=== PATIENT | male | born 1990 | race Caucasian/White ===

== ENCOUNTER 2020-08-10 14:05 | Outpatient (REF) | payer OTHER, SELFPAY | END 2020-08-10 14:06 | disposition home or self-care (01) | LOC: HO.LNP 14:05 | PROVIDERS: Visit Provider Hospitalist | DX: K52.1 Toxic gastroenteritis and colitis (principal); T36.95XA Adverse effect of unspecified systemic antibiotic, initial encounter; Y92.9 Unspecified place or not applicable; Z20.822 Contact with and (suspected) exposure to COVID-19 | CPT/HCPCS: U0003; U0005 ==

== ENCOUNTER 2020-08-19 14:07 | Emergency (ER) | payer OTHER, SELFPAY ==
--- NOTE | ~2020-08-19 | CT_ITS ---
EXAMINATION: CT ABDOMEN AND PELVIS WITH CONTRAST CLINICAL INFORMATION: Pain COMPARISON: None TECHNIQUE: Multidetector volumetric images were obtained from the superior aspect of the liver through the pubic symphysis following administration 85 mL of Omnipaque 350 intravenous contrast. Sagittal and coronal reformatted images were obtained on the technologist's workstation. Oral contrast: No This CT examination was performed using dose optimization techniques as appropriate, variously including the following: *Automated exposure control *Adjustment of mA and/or kV according to patient size (this includes techniques or standardized protocols for targeted exams where dose is matched to indication/reason for exam; i.e. extremities or head) *Use of iterative reconstruction technique DLP: 537 mGy-cm FINDINGS: LUNG BASES: The visualized lung bases are unremarkable. LIVER, GALLBLADDER, AND BILIARY TREE: There is triangular likely focal fatty infiltration adjacent the falciform ligament. No suspicious liver lesion. No biliary ductal dilatation. The gallbladder is unremarkable with no evidence of radiopaque gallstones, gallbladder wall thickening, or obvious pericholecystic inflammatory changes. PANCREAS: Unremarkable. SPLEEN: Unremarkable. ADRENAL GLANDS: Unremarkable. KIDNEYS AND URETERS: The kidneys are normal in size, shape, and attenuation. No hydronephrosis, hydroureter, or calculi seen. No perinephric stranding. BLADDER: Unremarkable. GASTROINTESTINAL TRACT: Stomach and small bowel are nondilated. There is a suggestion of subtle wall thickening of the right colon although it is predominantly collapsed. There is normal wall thickness of the distal transverse colon, left colon, and rectosigmoid colon. No focal inflammatory changes to suggest diverticulitis ABDOMINAL WALL: Small fat-containing umbilical hernia. LYMPH NODES: Normal. VASCULAR: Unremarkable. PELVIC VISCERA: Unremarkable. OSSEOUS STRUCTURES: Unremarkable. CT/CT abdomen pelvis w con IMPRESSION: There is a suggestion of wall thickening of the right colon, although its collapsed and the appearance could be due to underdistention. If the patient has right-sided abdominal pain, a nonspecific colitis is possible. Normal appendix. No evidence of diverticulitis.
--- NOTE | 2020-08-19 14:33 | ED.ABDPAIN ---
HPI - Abdominal Pain General Chief Complaint: Abdominal Pain Stated Complaint: abd pain Time Seen by Provider: 08/19/20 14:32 Source: patient Mode of arrival: ambulatory Limitations: no limitations History of Present Illness HPI narrative: Otherwise healthy 29-year-old male no significant past medical surgical history presenting ambulatory with complaint of periumbilical abdominal pain ongoing for past several weeks as also had for diarrhea which he had prior to a dental infection and worsened by penicillin he took for dental infection for couple of days. States he went to urgent care for this and was told to do take Imodium p.r.n. however he has not taken this much at all. States he gets diarrhea mostly with anything that he eats. Otherwise he denies any recent travel, sick contacts, recent illness. States he had recent COVID test that was negative and denies any upper respiratory symptoms or contact with anybody. MD elicited complaint: abdominal pain Pertinent past history: none Onset (ago): week(s) Pain Consistency: intermittent Location: periumbilical Severity: moderate Quality: cramping Radiation: none Exacerbating factors: eating Relieving factors: nothing Associated symptoms: diarrhea and other (Denies any fever, excessive weight loss or symptoms) Related Data Previous Rx's Medication Instructions Recorded dicyclomine 20 mg PO TID PRN #20 tab 08/19/20 levofloxacin 500 mg PO DAILY 7 Days #7 tab 08/19/20 metronidazole [Flagyl] 500 mg PO Q12H #14 tab 08/19/20 ondansetron HCl [Zofran] 4 mg PO Q8H PRN #10 tab 08/19/20 Allergies Allergy/AdvReac Type Severity Reaction Status Date / Time No Known Allergies Allergy Unverified 08/10/20 09:55 [No Known Allergies*] Review of Systems Review of Systems Constitutional: No Weight loss, No Fever, No Chills, No Night Sweats, No Fatigue, No Malaise ENT/Mouth: No Hearing loss, No Ear Pain, No Nasal Congestion, No Sinus Pain, No Hoarseness, No sore throat, No Rhinorrhea, No Swallowing Difficulty Eyes: No Eye Pain, No Swelling, No Redness, No Foreign Body, No Discharge, No Vision Changes Cardiovascular: No Chest Pain, No SOB, No Dyspnea on Exertion, No Orthopnea, No Edema, No Palpitations Respiratory: No Cough, No Sputum, No Wheezing, No Smoke Exposure, No Dyspnea Gastrointestinal: No Nausea, No Vomiting, + Diarrhea, No Constipation, + abdominal Pain, No Hematochezia, No Melena Genitourinary: No Urinary Frequency, No Hematuria, No Urinary Incontinence, No Urgency, No Flank Pain, No Urinary Flow Changes, No Hesitancy Musculoskeletal: No joint pain, No Myalgias, No Joint Swelling Skin: No Skin Lesions, No rash Neuro: No Weakness, No Numbness, No Paresthesias, No Loss of Consciousness, No Dizziness, No Headache Psych: No Social Issues Heme/Lymph: No Bruising, No Bleeding,No Lymphadenopathy Endocrine: No Polyuria, No Polydipsia, No Temperature Intolerance Yes all other systems are reviewed and are negative Physical Exam Vital Signs: Vital Signs: Last Vital Signs Temp 98.7 F 08/19/20 18:00 Pulse 64 08/19/20 18:00 Resp 16 08/19/20 18:00 BP 97/49 L 08/19/20 18:00 Pulse Ox 99 08/19/20 18:00 Body Mass Index 27.1 Reviewed Const: General: cooperative and healthy appearing; No acute distress or intoxicated appearing Nutritional Appearance: average body habitus Orientation/consciousness: patient oriented x3 HENMT: Head: Yes normal to inspection Ears: hearing grossly normal bilaterally Eyes: General: appearance normal, both eyes and all related structures Visual Laureano: normal visual laureano by confrontation Neck: Neck: Yes normal visual inspection, No positive Brudzinski's sign, No positive Kernig's sign and No tender Thyroid: Thyroid normal Chest: Chest palpation & inspection: normal inspection of the chest Resp: Effort & Inspection: normal respiratory effort Auscultation: clear to auscultation bilaterally Cardio: Jugular venous distension: no JVD Rhythm: regular rhythm Heart sounds: S1 normal heart sound present and S2 normal heart sound present GI: Inspection: Yes normal to inspection Palpation (GI): Soft to palpation, no guarding, not rigid, no hepatomegaly, no splenomegaly, no hernias and no masses Percussion: Yes normal to percussion Auscultation: normal bowel sounds : General: Yes no CVA tenderness Back/Spine/Pelvis: Back: no CVA tenderness Skin: General skin exam: no rashes or lesions noted Neuro: General: patient oriented x3 Extrem: General: Yes normal to inspection Course Course Course Narrative: Labs without leukocytosis, stool C diff and leukocyte negative, culture and H pylori pending. CT scan findings consistent with colitis tolerating p.o. intake well. Encouraged to push fluids and given the nonspecific findings on the CT will go ahead and encouraged to take Imodium p.r.n. start on Flagyl and Levaquin. Advised to contact if any other concerns and return to emergency room as well will provide GI referral. MDM - Abdominal Pain Differential Diagnosis Differential diagnosis: Likely abdominal pain, diverticulitis, gastroenteritis and gastritis; Unlikely aortic dissection, acute appendicitis, bowel perforation, calculus of kidney, constipation, mesenteric ischemia, pancreatitis, renal colic and small bowel obstruction Lab Data Attestation: I reviewed the patient's lab results. Result diagrams: 08/19/20 14:54 08/19/20 14:54 Labs: Lab Results 08/19/20 08/19/20 08/19/20 Range/Units 14:54 14:54 18:03 WBC 6.4 (4.8-10.8) X10*3/uL RBC 5.47 (4.60-5.80) X10*6/uL Hgb 15.7 (14.0-18.0) g/dl Hct 46.7 (42-52) % MCV 85.4 (80-98) fL MCH 28.7 (27.0-33.0) pg MCHC 33.6 (31.0-36.0) g/dl RDW 12.3 (11.0-16.0) % Plt Count 241 (160-400) X10*3/uL MPV 10.5 (9.4-12.4) fL Immature Gran % (Auto) 0.6 H (0.0-0.4) % Neut % (Auto) 47.0 (45-73) % Lymph % (Auto) 44.3 H (20-40) % Rogers % (Auto) 6.1 (2-11) % Eos % (Auto) 1.4 (0-4) % Baso % (Auto) 0.6 (0-2) % Lymph # (Auto) 2.8 (1.2-4.9) X10*3/uL Rogers # (Auto) 0.4 (0.1-1.2) X10*3/uL Eos # (Auto) 0.1 (0.0-0.4) X10*3/uL Baso # (Auto) 0.0 (0.0-0.2) X10*3/uL Abs Immat Gran (auto) 0.04 H (0.00-0.03) X10*3/uL Absolute Neuts (auto) 3.0 (2.0-8.3) X10*3/uL Absolute Nucleated RBC 0.000 (0.0-0.012) X10*3/uL Nucleated RBC % (auto) 0.0 (0.0-0.2) /100WBC Sodium 139 (135-145) mmol/L Potassium 4.2 (3.3-5.1) mmol/L Chloride 102 (96-108) mmol/L Carbon Dioxide 28 (22-29) mmol/L Anion Gap 13 (12-20) BUN 9 (9-16) mg/dL Creatinine 1.00 (0.5-1.4) mg/dL Estim Creat Clear Calc 118.5 Estimated GFR > 60 Random Glucose 91 (60-115) mg/dL Calcium 9.7 (8.4-10.2) mg/dL Total Bilirubin 0.9 (0.0-1.0) mg/dL AST 26 (5-37) U/L ALT 25 (0-40) U/L Alkaline Phosphatase 84 (39-117) U/L Total Protein 7.7 (6.5-8.0) g/dL Albumin 4.7 (3.5-5.0) g/dL Stool Collect Date Stool Occult Blood Stool 2 Collect Date Stool Occult Blood #2 Stool 3 Collect Date Stool Occult Blood #3 Stool Leukocytes, Qual NEGATIVE (NEGATIVE) C. difficile Toxin A&B (Negative) C. difficile Antigen (Negative) C. difficile Interpret 08/19/20 08/19/20 08/19/20 Range/Units 18:03 18:03 18:55 WBC (4.8-10.8) X10*3/uL RBC (4.60-5.80) X10*6/uL Hgb (14.0-18.0) g/dl Hct (42-52) % MCV (80-98) fL MCH (27.0-33.0) pg MCHC (31.0-36.0) g/dl RDW (11.0-16.0) % Plt Count (160-400) X10*3/uL MPV (9.4-12.4) fL Immature Gran % (Auto) (0.0-0.4) % Neut % (Auto) (45-73) % Lymph % (Auto) (20-40) % Rogers % (Auto) (2-11) % Eos % (Auto) (0-4) % Baso % (Auto) (0-2) % Lymph # (Auto) (1.2-4.9) X10*3/uL Rogers # (Auto) (0.1-1.2) X10*3/uL Eos # (Auto) (0.0-0.4) X10*3/uL Baso # (Auto) (0.0-0.2) X10*3/uL Abs Immat Gran (auto) (0.00-0.03) X10*3/uL Absolute Neuts (auto) (2.0-8.3) X10*3/uL Absolute Nucleated RBC (0.0-0.012) X10*3/uL Nucleated RBC % (auto) (0.0-0.2) /100WBC Sodium (135-145) mmol/L Potassium (3.3-5.1) mmol/L Chloride (96-108) mmol/L Carbon Dioxide (22-29) mmol/L Anion Gap (12-20) BUN (9-16) mg/dL Creatinine (0.5-1.4) mg/dL Estim Creat Clear Calc Estimated GFR Random Glucose (60-115) mg/dL Calcium (8.4-10.2) mg/dL Total Bilirubin (0.0-1.0) mg/dL AST (5-37) U/L ALT (0-40) U/L Alkaline Phosphatase (39-117) U/L Total Protein (6.5-8.0) g/dL Albumin (3.5-5.0) g/dL Stool Collect Date Cancelled Stool Occult Blood Cancelled NEG Stool 2 Collect Date Cancelled Stool Occult Blood #2 Cancelled Stool 3 Collect Date Cancelled Stool Occult Blood #3 Cancelled Stool Leukocytes, Qual (NEGATIVE) C. difficile Toxin A&B Negative (Negative) C. difficile Antigen Negative (Negative) C. difficile Interpret SEE NOTE Imaging Data Abdominal/pelvis CT with IV contrast: Radiologist's impression: [id number] [place], [place] [id number] Scan ReportSigned Patient: Mitch Saunders BilalMR#: [id number]: 1990Acct:[id number]/Sex: 29 / MADM Date: 08/19/20Loc: [address]: Ordering Physician: Hank Bray NP Date of Service: 08/19/20 Procedure(s): CT abdomen pelvis w con Accession Number(s): [id number] cc: Hank Bray NP~ EXAMINATION: CT ABDOMEN AND PELVIS WITH CONTRAST CLINICAL INFORMATION: Pain COMPARISON: None TECHNIQUE: Multidetector volumetric images were obtained from the superior aspect of the liver through the pubic symphysis following administration 85 mL of Omnipaque 350 intravenous contrast. Sagittal and coronal reformatted images were obtained on the technologist's workstation. Oral contrast: No This CT examination was performed using dose optimization techniques as appropriate, variously including the following: *Automated exposure control *Adjustment of mA and/or kV according to patient size (this includes techniques or standardized protocols for targeted exams where dose is matched to indication/reason for exam; i.e. extremities or head) *Use of iterative reconstruction technique DLP: 537 mGy-cm FINDINGS: LUNG BASES: The visualized lung bases are unremarkable. LIVER, GALLBLADDER, AND BILIARY TREE: There is triangular likely focal fatty infiltration adjacent the falciform ligament. No suspicious liver lesion. No biliary ductal dilatation. The gallbladder is unremarkable with no evidence of radiopaque gallstones, gallbladder wall thickening, or obvious pericholecystic inflammatory changes. PANCREAS: Unremarkable. SPLEEN: Unremarkable. ADRENAL GLANDS: Unremarkable. KIDNEYS AND URETERS: The kidneys are normal in size, shape, and attenuation. No hydronephrosis, hydroureter, or calculi seen. No perinephric stranding. BLADDER: Unremarkable. GASTROINTESTINAL TRACT: Stomach and small bowel are nondilated. There is a suggestion of subtle wall thickening of the right colon although it is predominantly collapsed. There is normal wall thickness of the distal transverse colon, left colon, and rectosigmoid colon. No focal inflammatory changes to suggest diverticulitis ABDOMINAL WALL: Small fat-containing umbilical hernia. LYMPH NODES: Normal. VASCULAR: Unremarkable. PELVIC VISCERA: Unremarkable. OSSEOUS STRUCTURES: Unremarkable. CT/CT abdomen pelvis w con IMPRESSION: There is a suggestion of wall thickening of the right colon, although its collapsed and the appearance could be due to underdistention. If the patient has right-sided abdominal pain, a nonspecific colitis is possible. Normal appendix. No evidence of diverticulitis. Dictated By:TAIWO SABILLON MDSigned By:<Electronically signed by TAIWO SABILLON MD in OV>08/19/20 1634 DD/ 1437TD/TT: Floral Arranger: TF Discharge Plan Discharge Clinical Impression: Colitis Diarrhea Qualifiers: Diarrhea type: unspecified type Qualified Code(s): R19.7 - Diarrhea, unspecified Patient Disposition: Home, Self-Care Instructions: Colitis (ED) Additional Instructions: Your blood work was overall stable did not show any signs of dehydration or infection The CT scan of the abdomen pelvis showed right colon thickening that is consistent with colitis (inflammation/irritation) At this time your stool samples are pending; we will call you with results Otherwise your CT scan did not show any evidence of abscess or appendix problems or diverticulitis. Push fluids Avoid caffeine, caffeinated drinks, chocolate Take medication prescribed If we need to change your regimen of her medications will call you with with this Additionally I would like for you to follow-up with gastroenterology Thank you Prescriptions: New dicyclomine 20 mg tablet 20 mg PO TID PRN (Reason: Abdominal cramping) Qty: 20 RF: 0 metronidazole [Flagyl] 500 mg tablet 500 mg PO Q12H Qty: 14 RF: 0 ondansetron HCl [Zofran] 4 mg tablet 4 mg PO Q8H PRN (Reason: nausea and vomiting) Qty: 10 RF: 0 levofloxacin 500 mg tablet 500 mg PO DAILY 7 Days Qty: 7 RF: 0 Referrals: Leopoldo Garcia MD [Physician] - 1 week Interventions: ED Discharge Assessment Last Done: 08/19/20 18:41 Discharge Date/Time: 08/19/20 18:42 [facility] Social History Social History Advance Directives: No Advance Directives Information Provided: Yes
[2020-08-19 14:43] VITALS: BP 138/86; PULSE 81; RESP 20; TEMP 36.8; O2SAT 99; BMI 27.1
[2020-08-19] MEDS: 0.9 % Sodium Chloride 1,000 ML 999 ML IV (14:55)
[2020-08-19] MEDS: Dicyclomine HCl 10 MG CAPSULE 20 MG PO (14:56)
[2020-08-19 15:02] LABS: MANUAL DIFF FLAG NO
[2020-08-19 15:04] LABS: Basophils Percent Auto 0.6 % (0-2); Eosinophils Absolute Auto 0.1 X10*3/uL (0.0-0.4); Eosinophils Percent Auto 1.4 % (0-4); Hematocrit 46.7 % (42-52); Hemoglobin 15.7 g/dl (14.0-18.0); Imm Gran Abs Auto 0.04 X10*3/uL (0.00-0.03); Imm Gran Pct Auto 0.6 % (0.0-0.4); Lymphocytes Absolute Auto 2.8 X10*3/uL (1.2-4.9); Lymphocytes Percent Auto 44.3 % (20-40); Mean Corpuscular HGB Conc 33.6 g/dl (31.0-36.0); Mean Corpuscular Hemoglobin 28.7 pg (27.0-33.0); Mean Corpuscular Volume 85.4 fL (80-98); Mean Platelet Volume 10.5 fL (9.4-12.4); Monocytes Absolute Auto 0.4 X10*3/uL (0.1-1.2); Monocytes Percent Auto 6.1 % (2-11); Platelet Count 241 X10*3/uL (160-400); Red Blood Count 5.47 X10*6/uL (4.60-5.80); Red Cell Distribution Width 12.3 % (11.0-16.0); White Blood Count 6.4 X10*3/uL (4.8-10.8)
[2020-08-19 15:32] LABS: Alanine Aminotransferase 25 U/L (0-40); Albumin Level 4.7 g/dL (3.5-5.0); Alkaline Phosphatase 84 U/L (39-117); Anion Gap 13 (12-20); Aspartate Amino Transferase 26 U/L (5-37); Bilirubin Total 0.9 mg/dL (0.0-1.0); Blood Urea Nitrogen 9 mg/dL (9-16); Calcium 9.7 mg/dL (8.4-10.2); Carbon Dioxide 28 mmol/L (22-29); Chloride 102 mmol/L (96-108); Creatinine Clr Calc Pharmacy 118.5; Estimated Glomerular Filt Rate > 60; Glucose Random 91 mg/dL (60-115); Potassium 4.2 mmol/L (3.3-5.1); Sodium 139 mmol/L (135-145); Total Protein 7.7 g/dL (6.5-8.0)
[2020-08-19 16:00] VITALS: BP 101/59; PULSE 64; RESP 15; TEMP 36.8; O2SAT 99
[2020-08-19 18:00] VITALS: BP 97/49; PULSE 64; RESP 16; TEMP 37.1; O2SAT 99
[2020-08-19 19:01] LABS: OBS Int Ctl Valid YES; OBS1 NEG (NEG)
[2020-08-19 19:28] LABS: CDIFF Ag Negative (Negative); CDIFF Internal ctrl Dots and bkg OK (V); CDiff Toxin Negative (Negative)
[2020-08-19 19:35] LABS: Leukocytes Stool Qualitative NEGATIVE (NEGATIVE)
== END 2020-08-19 18:42 | disposition home or self-care (01) ==
PROVIDERS: Nurse Practitioner Primary Care; Emergency Provider Internal Medicine; PCP Nurse Practitioner Family
DX: K52.9 Noninfective gastroenteritis and colitis, unspecified (principal); R10.33 Periumbilical pain
CPT/HCPCS: 36415; 74177; 80053; 82272; 85025; 87045; 87046; 87324; 87338; 87449; 89055; 96360; 99283; 99284; Q9967

== ENCOUNTER → 2020-10-03 14:19 | Outpatient (BNVA) | payer OTHER, SELFPAY | PROVIDERS: Visit Provider Internal Medicine Gastroenterology ==

== ENCOUNTER 2021-02-23 08:33 | Outpatient (REF) | payer OTHER, SELFPAY ==
[2021-02-23 09:09] LABS: MANUAL DIFF FLAG NO
[2021-02-23 09:44] LABS: Alanine Aminotransferase 26 U/L (0-40); Albumin Level 4.3 g/dL (3.5-5.0); Alkaline Phosphatase 79 U/L (39-117); Anion Gap 11 (12-20); Aspartate Amino Transferase 20 U/L (5-37); Basophils Percent Auto 0.6 % (0-2); Bilirubin Total 0.7 mg/dL (0.0-1.0); Blood Urea Nitrogen 11 mg/dL (9-16); C Reactive Protein 0.11 mg/dL (< or = 0.50); Calcium 9.8 mg/dL (8.4-10.2); Carbon Dioxide 29 mmol/L (22-29); Chloride 103 mmol/L (96-108); Eosinophils Absolute Auto 0.1 X10*3/uL (0.0-0.4); Eosinophils Percent Auto 2.3 % (0-4); Estimated Glomerular Filt Rate > 60; Glucose Random 110 mg/dL (60-115); Hematocrit 45.5 % (42-52); Imm Gran Abs Auto 0.03 X10*3/uL (0.00-0.03); Imm Gran Pct Auto 0.6 % (0.0-0.4); Lymphocytes Absolute Auto 2.5 X10*3/uL (1.2-4.9); Lymphocytes Percent Auto 47.4 % (20-40); Mean Corpuscular Hemoglobin 28.4 pg (27.0-33.0); Mean Platelet Volume 10.6 fL (9.4-12.4); Monocytes Absolute Auto 0.4 X10*3/uL (0.1-1.2); Neutrophils Absolute Auto 2.3 X10*3/uL (2.0-8.3); Neutrophils Percent Auto 42.1 % (45-73); Platelet Count 215 X10*3/uL (160-400); Potassium 4.3 mmol/L (3.3-5.1); Red Blood Count 5.29 X10*6/uL (4.60-5.80); Red Cell Distribution Width 12.4 % (11.0-16.0); Sodium 139 mmol/L (135-145); Total Protein 7.1 g/dL (6.5-8.0); White Blood Count 5.3 X10*3/uL (4.8-10.8)
[2021-02-23 10:09] LABS: Erythrocyte Sedimentation Rate 2 MM/HR (0-15)
== END 2021-02-23 08:34 | disposition home or self-care (01) ==
LOC: HO.LAB 08:33
PROVIDERS: Visit Provider Internal Medicine Gastroenterology
DX: K52.9 Noninfective gastroenteritis and colitis, unspecified (principal); K75.81 Nonalcoholic steatohepatitis (NASH)
CPT/HCPCS: 36415; 80053; 85025; 85652; 86140

== ENCOUNTER 2021-03-17 11:28 | Outpatient (REF) | payer OTHER, SELFPAY ==
[2021-03-23 02:26] LABS: Calprotectin, Fecal 19 mcg/g
== END 2021-03-17 11:29 | disposition home or self-care (01) ==
LOC: HO.LNP 11:28
PROVIDERS: Referring Provider Internal Medicine Gastroenterology; Visit Provider Internal Medicine Gastroenterology
DX: K52.9 Noninfective gastroenteritis and colitis, unspecified (principal)
CPT/HCPCS: 83993

== ENCOUNTER → 2021-05-01 13:53 | Outpatient (BNVA) | payer OTHER, SELFPAY | PROVIDERS: PCP Nurse Practitioner Family; Visit Provider Internal Medicine Gastroenterology ==

== ENCOUNTER 2021-05-16 09:27 | Outpatient (REF) | payer OTHER, SELFPAY ==
--- NOTE | ~2021-05-16 | CT_ITS ---
EXAMINATION: CT ENTEROGRAPHY ABDOMEN AND PELVIS WITH CONTRAST CLINICAL INFORMATION: Periumbilical pain. Colitis. COMPARISON: Review of CT of the abdomen and pelvis August 2020 TECHNIQUE: Study performed with oral VoLumen (1350 mL) and 480 mL of water to distend the abdomen. The patient was injected with 85 mL Omnipaque 350 intravenous contrast which was administered without adverse effect. Coronal and sagittal reformatted images were obtained at the technologist's workstation. This CT examination was performed using dose optimization techniques as appropriate, variously including the following: *Automated exposure control *Adjustment of mA and/or kV according to patient size (this includes techniques or standardized protocols for targeted exams where dose is matched to indication/reason for exam; i.e. extremities or head) *Use of iterative reconstruction technique DLP: 560 mGy-cm FINDINGS: GASTROINTESTINAL FINDINGS: Stomach: Well-distended and normal in appearance. Small intestine: Satisfactorily distended and normal in appearance. Large intestine: Well-distended and normal in appearance. No perirectal changes demonstrated. The appendix is normal. Additional findings: No abnormal enhancement of the vasa recta or significant mesenteric or retroperitoneal lymphadenopathy is seen. No abdominal abscess or fistulous tract demonstrated. ABDOMINAL AND PELVIC CT FINDINGS: Liver, gallbladder, biliary tract: Normal Pancreas: Normal Spleen: Normal Adrenal glands and kidneys: Normal Ureters and bladder: Normal Lymphovascular structures: Normal Bones: There is degenerative disc disease at L5-S1 Lung bases: Normal There is a small umbilical hernia containing fat. CT/CT enterography IMPRESSION: No evidence of colitis. Small umbilical hernia containing fat.
[2021-05-16] MEDS: iohexoL 350 MG/ML 100 ML INFUS..BTL IV (10:55)
[2021-05-16] MEDS: Sorbitol/Mannit/Xanth Imaging 500 ML LIQUID 1500 ML PO (10:55)
== END 2021-05-16 09:28 | disposition home or self-care (01) ==
LOC: HO.CT 09:27
PROVIDERS: Visit Provider Internal Medicine Gastroenterology
DX: R10.33 Periumbilical pain (principal)
CPT/HCPCS: 74177; Q9967

== ENCOUNTER 2022-01-08 06:56 | Day surgery (SDC) | payer OTHER, SELFPAY ==
--- NOTE | 2021-12-14 10:43 | HO.ANESPROP2 ---
HPI - Anesthesia Eval Consult details Narrative: 31yo M for Colonoscopy PMFSH Active Problems Active Problems: All Active Problems (Updated 10/03/20 @ 15:06 by Leopoldo Garcia MD) Colitis (Acute) Antibiotic-associated diarrhea (Acute) Family History Family History Family/Other Diabetes Heart attack Meds Allergies Allergy/AdvReac Type Severity Reaction Status Date / Time No Known Allergies Allergy Verified 10/03/20 14:20 [No Known Allergies*] Home Medications Medication Instructions Recorded Confirmed Last Taken Type dicyclomine 20 mg tablet 20 mg PO TID PRN cramps 01/30/21 Unknown History levofloxacin 500 mg tablet 500 mg PO DAILY 01/30/21 Unknown History metronidazole 500 mg tablet 500 mg PO Q12H 01/30/21 Unknown History ondansetron HCl 4 mg tablet 4 mg PO Q8H PRN 01/30/21 Unknown History Exam Exam Date and Time: December 14, 2021 1043 Assessment and Plan Assessment Anesthesia Assessment: Chart Reviewed
--- NOTE | 2022-01-07 09:26 | HO.ANESPROP2 ---
Documented by User: Ericka Slade NP 01/07/22 09:26 HPI - Anesthesia Eval Consult details Narrative: 31yo M for Colonoscopy [facility] Active Problems Active Problems: All Active Problems (Updated 01/02/22 @ 14:22 by Michelle Thomas RN) Antibiotic-associated diarrhea (Acute) Colitis (Acute) Past Medical History Medical History Colitis History of COVID-19 Family History Family History Family/Other Diabetes Heart attack Social History Social History Patient Tobacco Use Status: Never used Tobacco Are you DNR?: No Advance Directives: No Advance Directives Information Provided: Yes Nutrition Risks: No Nutritional Risk Meds Allergies Allergy/AdvReac Type Severity Reaction Status Date / Time No Known Allergies Allergy Verified 01/08/22 07:14 [No Known Allergies*] Home Medications Medication Instructions Recorded Confirmed Last Taken Type dicyclomine 20 mg tablet 20 mg PO TID PRN cramps 01/30/21 Unknown History levofloxacin 500 mg tablet 500 mg PO DAILY 01/30/21 Unknown History metronidazole 500 mg tablet 500 mg PO Q12H 01/30/21 Unknown History ondansetron HCl 4 mg tablet 4 mg PO Q8H PRN 01/30/21 Unknown History Exam Exam Date and Time: January 07, 2022 0926 Height,Weight and Vital Signs: Height 6 ft Assessment and Plan Assessment Anesthesia Assessment: Chart Reviewed Documented by User: Yves Yeager MD 01/08/22 08:45 [facility] Past Medical History Medical History Colitis History of COVID-19 Family History Family History Family/Other Diabetes Heart attack Family history of problems with anesthesia: No Surgical History History of Problems with Anesthesia: No Social History Social History Patient Tobacco Use Status: Never used Tobacco Are you DNR?: No Advance Directives: No Advance Directives Information Provided: Yes Nutrition Risks: No Nutritional Risk Meds Allergies Allergy/AdvReac Type Severity Reaction Status Date / Time No Known Allergies Allergy Verified 01/08/22 07:14 [No Known Allergies*] Home Medications Medication Instructions Recorded Confirmed Last Taken Type dicyclomine 20 mg tablet 20 mg PO TID PRN cramps 01/30/21 Unknown History levofloxacin 500 mg tablet 500 mg PO DAILY 01/30/21 Unknown History metronidazole 500 mg tablet 500 mg PO Q12H 01/30/21 Unknown History ondansetron HCl 4 mg tablet 4 mg PO Q8H PRN 01/30/21 Unknown History Exam Airway Mallampati Class: I TM Dist: >3cm Neck ROM: Full Loose/Missing/Broken Teeth: No Heart: rrr Lungs: clear Assessment and Plan Final Anesthetic Review Family History of Problems with Anesthesia: No History of Problems with Anesthesia: No ASA Class: I Final Preanesthetic Review: No Changes in Pt Med Stat, Meds/Allgs Chart Reviewed and Anes Risks/Benef Reviewed Patient Risk: Low (U) Procedure Risk: Low Anesthetic Plan Anesthetic Plan: MAC: Disposition: Standard PACU
[2022-01-08] MEDS: Lactated Ringers 1,000 ML 100 ML IVCONT (07:19)
[2022-01-08 07:30] VITALS: BMI 27.9
[2022-01-08 07:31] VITALS: BP 129/77; PULSE 79; RESP 18; TEMP 36.7; O2SAT 98
--- NOTE | 2022-01-08 08:02 | MHC.SHP ---
Pre-Procedural Eval Section A Date of Service: 01/08/22 Section B Chief Complaint: Noninfective gastroenteritis and colitis, Relevant Family History (Specify if Yes): No Relevant Social History: None Present Medications: see Short Stay Collaborative assessment Medical History: Significant History (Colitis History of COVID-19) History of Previous Operations: No relevant previous surgery Allergies: Allergies Allergy/AdvReac Type Severity Reaction Status Date / Time No Known Allergies Allergy Verified 01/08/22 07:14 [No Known Allergies*] Review of Systems Sugical H&P ROS: Negative: Constitution, Cardiovascular, Respiratory, Neurological, Psychiatric, Hem-Onc, Allergic/Immunologic, Gastrointestinal, Genitourinary, Musculoskeletal, Integumentary, Endocrine and Eyes/Ears/Nose/Throat Exam Surgical H&P Exam: Normal: HEENT, Normal: Heart, Normal: Lungs, Normal: Extremities, Normal: Abdomen, Normal: Skin and Normal: Neurological Plan Diagnosis/Plan: Unchanged I have reviewed the history and physical and performed a pertinent physical examination on my patient. No changes have occurred unless specified.
--- NOTE | 2022-01-08 08:37 | P.OP_ITS ---
Operative Note Operative Note Date of Service: 01/08/22 Narrative: Operative Information Procedure Description: Colonoscopy Indication: episodic diarrhea, colitis Anesthesia: MAC COLONOSCOPY Instrument: Olympus variable stiffness pediatric scope 190L Colonoscopy Monitoring: Vital signs and clinical assessment, continuous EKG monitoring, Pulse oximetry, Carbon Dioxide monitoring and blood pressure monitoring were done throughout the procedure. Colon withdrawal time was 8 minutes. Procedure: The patient was placed in the left lateral decubitis position and pre-procedure medications were administered. After a digital rectal examination of the ano-rectum, the video colonoscope was inserted into the rectum and advanced through the colon to the cecum/TI. The colonoscope was slowly withdrawn in a retrograde panoramic fashion and the colon mucosa was carefully examined including a retroflexed view of the rectum. Findings and interventions are described below. Procedure Difficulty: easy Findings: Terminal Ileum-normal, bx taken Cecum: 10 mm sessile polyp removed with cold snare Ascending Colon: normal, random bx taken Transverse Colon -normal Descending Colon:normal Sigmoid Colon: normal random left sided bx taken Rectum: Retroflexion with small internal hemorrhoids, grade I Anorectum - normal Colon preparation: [place] Bowel Preparation Scale Right colon; 3 Transverse colon: 3 Left colon; 3 (0 = Unprepared colon segment with mucosa not seen due to solid stool that cannot be cleared. 1 = Portion of mucosa of the colon segment seen, but other areas of the colon segment not well seen due to staining, residual stool and/or opaque liquid. 2 = Minor amount of residual staining, small fragments of stool and/or opaque liquid, but mucosa of colon segment seen well. 3 = Entire mucosa of colon segment seen well with no residual staining, small fr agments of stool or opaque liquid) Impression and Post Procedure Diagnosis: polyp internal hemorrhoids Plan: High fiber diet leaflet Avoid straining at stool, epsom salts and sitz bath, anusol supps or cream Repeat Colonoscopy in 5-7 years due to adenomatous appearing polyp or earlier if clinically indicated Above findings were reviewed with the patient and relevant handouts were provided if indicated.
[2022-01-08 09:14] VITALS: BP 102/74; PULSE 87; RESP 16; TEMP 36.6; O2SAT 98
[2022-01-08 09:29] VITALS: BP 115/72; PULSE 76; RESP 16; TEMP 36.6; O2SAT 98
== END 2022-01-08 10:11 | disposition home or self-care (01) ==
PROVIDERS: PCP Internal Medicine; Visit Provider Internal Medicine Gastroenterology
PROC: 0DJD8ZZ Inspection of Lower Intestinal Tract, Via Natural or Artificial Opening Endoscopic (ICD-10-PCS; CPT 45378; principal; 2022-01-08 08:20)
DX: K52.9 Noninfective gastroenteritis and colitis, unspecified (principal); K63.5 Polyp of colon; K64.0 First degree hemorrhoids; Z86.16 Personal history of COVID-19
CPT/HCPCS: 45385; 45380; 88305

== ENCOUNTER 2022-09-21 01:13 | Emergency (ER) | payer MEDICAID, SELFPAY ==
--- NOTE | ~2022-09-21 | CT_ITS ---
EXAMINATION: CT CERVICAL SPINE WITHOUT CONTRAST CLINICAL INFORMATION: Mid cervical pain after soccer game. COMPARISON: None. TECHNIQUE: Contiguous helical images of the cervical spine were obtained without IV contrast. Multiplanar reconstructions were performed. This CT examination was performed using dose optimization techniques as appropriate, variously including the following: *Automated exposure control *Adjustment of mA and/or kV according to patient size (this includes techniques or standardized protocols for targeted exams where dose is matched to indication/reason for exam; i.e. extremities or head) *Use of iterative reconstruction technique DLP: 461 mGy-cm FINDINGS: There is anatomic alignment of the vertebral bodies and posterior elements. The atlantoaxial and atlantooccipital articulations are intact. Vertebral body heights and intervertebral disc spaces are maintained. No evidence of acute fracture. No prevertebral soft tissue swelling. There is no cervical lymphadenopathy. The visualized thyroid gland is unremarkable. The visualized base of the brain is unremarkable. The visualized lung apices are clear. CT/CT cervical spine wo IV con IMPRESSION: No evidence for acute injury to the cervical spine.
--- NOTE | ~2022-09-21 | XR_ITS ---
EXAMINATION: XR SHOULDER, RIGHT CLINICAL INFORMATION: Pain after soccer COMPARISON: None available. TECHNIQUE: Three views of the right shoulder. FINDINGS: No fracture or dislocation. The glenohumeral joint is well aligned. The acromioclavicular joint is intact. The visualized lung is clear. The visualized ribs are intact. Minimal calcification in the soft tissues adjacent to the right humeral greater tuberosity. XR/XR shoulder RT min 2V IMPRESSION: 1. No fracture or malalignment. 2. Minimal calcification adjacent to the right humeral greater tuberosity may represent calcific tendinosis of the rotator cuff.
[2022-09-21 01:39] VITALS: BP 101/69; PULSE 66; RESP 16; TEMP 36.7; O2SAT 97; BMI 28.5
--- NOTE | 2022-09-21 02:22 | PC.NURSE ---
Notified Charge nurse Leena pt notified this RN pain is getting worse. Will continue to monitor.
--- OUTSIDE RECORDS SUMMARY | 2022-09-21 02:31 | XMS_ITS | Continuity of Care Document ---
Author Name Unknown Organization [facility] ter Address [address] [place] [address]- Care Team Providers Care Nuclear Security Officer Name Role Phone Pramod STEIN, Luigi Santoro Primary Care Physician Encounter [facility] [place] [place] Date(s): 04/09/22 - 04/09/[address] [address]- Discharge Disposition: A-D/C Home Attending Physician: Kai Fang MD Admitting Physician: Kai Fang MD Referring Physician: Kai Fang MD Allergies, Adverse Reactions, Alerts No Known Allergies Immunizations Given and Recorded Vaccine Date Status Refusal Reason SARS-CoV-2 (COVID-19) mRNA BNT-162b2 vac 04/06/21 Recorded SARS-CoV-2 (COVID-19) mRNA BNT-162b2 vac 10/02/20 Recorded SARS-CoV-2 (COVID-19) mRNA BNT-162b2 vac 09/11/20 Recorded influenza virus vaccine, inactivated 04/05/20 Lucien rded Meningococcal Conjugate Vaccine 08/05/18 Recorded Hepatitis A Adult Vaccine 08/05/18 Recorded Medications diazepam 5 mg oral tablet 5 mg, 1, tablet, By Mouth, 3 times a day, # 40 tablet, Refills 0, Tot. Refills 0, Maintenance, 04/09/22 9:41:00 EDT, Route to Pharmacy Electronically, [facility]/pharmacy #[id number], Partial fill upon patient request if the prescription is for a schedule II opioi... Start Date: 04/09/22 Status: Ordered docusate sodium 100 mg oral capsule 100 mg, 1, capsule, By Mouth, 2 times a day, # 60 capsule, Refills 0, Tot. Refills 0, Maintenance, 04/09/22 14:07:00 EDT, Route to Pharmacy Electronically, [facility]/pharmacy #[id number], Partial fill upon patient request if the prescription is for a schedule II... Start Date: 04/09/22 Status: Ordered Flonase 50 mcg/inh nasal spray 2 sprays, Nares, Both, Daily in AM, # 16 Gm, 0 Refills, Maintenance, 03/19/22 14:57:00 EDT, [place], [id number], Partial fill upon patient request if the prescription is for a schedule II opioid drug., 2 sprays Nares, Both Daily in AM, 183, cm,... Start Date: 03/19/22 Status: Ordered ipratropium nasal 21 mcg/inh spray 1 sprays, Nares, Both, 3 times a day, PRN nasal and sinus congestion, for 14 days, # 1 each, 5 Refills, Acute 06/14/22 14:57:00 EST, 03/22/22 14:57:00 EDT, [id number], Partial fill upon patient request if the prescription is for a schedule II... Start Date: 03/22/22 Stop Date: 06/14/22 Status: Ordered levocetirizine 5 mg oral tablet 1 tablet = 5 mg, By Mouth, Daily in PM, PRN head congestion, # 14 tablet, 0 Refills, Maintenance, 03/22/22 14:58:00 EDT, Tablet, [facility]/pharmacy #[id number], Partial fill upon patient request if the prescription is for a schedule II opioid drug., 1 tablet By M... Start Date: 03/22/22 Stop Date: 04/05/22 Status: Ordered oxyCODONE 5 mg oral capsule 1 capsule = 5 mg, By Mouth, Every 6 hours, PRN as needed for pain, # 28 capsule, 0 Refills, Maintenance, 04/09/22 9:41:00 EDT, Capsule, [id number], Partial fill upon patient request if the prescription is for a schedule II opioid drug., 183, c... Start Date: 04/09/22 Status: Ordered Oxycodone 5mg/Acetaminophen 325mg Tablet 2 tablet, Tablet, By Mouth, Every 4 hours, PRN for Pain , Moderate, Routine, 04/09/22 10:08:00 EDT Start Date: 04/09/22 Stop Date: 04/09/22 Status: Discontinued Problem List Condition Confirmation Course Effective Dates Status Health St atus Informant DDD (degenerative disc disease), lumbar (L5-S1) Confirmed 05/16/21 Active Perianal cyst Confirmed Active Exertional shortness of breath Confirmed Active Internal hemorrhoids Confirmed Active Cecal polyp, 1 cm Confirmed Active Umbilical hernia without obstruction and without gangrene (small, fat containing on CT enterography) Confirmed 05/16/21 Active Vital Signs Most recent to oldest [Reference Range]: 1 2 3 Weight 96.4 kg (04/09/22 8:00 AM) Oxygen Saturation [94-100 %] 100 % (04/09/22 11:00 AM) 96 % (04/09/22 10:00 AM) 95 % (04/09/22 8:00 AM) Pulse Rate [55-90 bpm] 75 bpm (04/09/22 8:00 AM) Blood Pressure [90-138/55-84 mm Hg] 121/82mm Hg (04/09/22 11:00 AM) 104/63mm Hg (04/09/22 10:00 AM) 105/69mm Hg (04/09/22 8:00 AM) Respiratory Rate [16-30 br/min] 16 br/min (04/09/22 11:05 AM) 14 br/min *L* (04/09/22 11:00 AM) 15 br/min *L* (04/09/22 10:00 AM) Temperature [96.8-100.4 DegF] 97.8 DegF (04/09/22 10:00 AM) 97.6 DegF (04/09/22 8:00 AM) Mode of Delivery (Oxygen) Room air (04/09/22 11:30 AM) Room air (04/09/22 10:00 AM) Room air (04/09/22 8:00 AM) Blood pressure sites Arm, right (04/09/22 10:00 AM) Arm, left (04/09/22 8:00 AM) Temperature Route Temporal (04/09/22 10:00 AM) Temporal (04/09/22 8:00 AM) Dry Weight 96.4 kg (04/09/22 8:00 AM) Weight Obtained Via Standing scale (04/09/22 8:00 AM) Dry Weight Obtained Via Standing scale (04/09/22 8:00 AM) Social History Social History Type Response Smoking Status Never (less than 100 in lifetime) entered on: 09/14/21 Sex Patient Care team information Personnel Name: Pramod STEIN, Luigi W Address: Address: [address] [place] [address] [place], [place] [address]
--- OUTSIDE RECORDS SUMMARY | 2022-09-21 02:31 | XMS_ITS | Continuity of Care Document ---
Author Name Unknown Organization [facility] Address [address] [place] [address] [address] [place] [address]- Care Team Providers Care Litigation Examiner Name Role Phone Luigi Benavidez MD Primary Care Physician Encounter [facility] [place] Date(s): 02/04/22 - 02/11/[address] [place] [address]- Encounter Diagnosis Abscess(Discharge Diagnosis) - 02/04/22 Attending Physician: Ade Pack NP Referring Physician: Luigi Benavidez MD Allergies, Adverse Reactions, Alerts No Known Allergies Immunizations Given and Recorded Vaccine Date Status Refusal Reason SARS-CoV-2 (COVID-19) mRNA BNT-162b2 vac 04/06/21 Recorded SARS-CoV-2 (COVID-19) mRNA BNT-162b2 vac 10/02/20 Recorded SARS-CoV-2 (COVID-19) mRNA BNT-162b2 vac 09/11/20 Recorded influenza virus vaccine, inactivated 04/05/20 Lucien rded Meningococcal Conjugate Vaccine 08/05/18 Recorded Hepatitis A Adult Vaccine 08/05/18 Recorded Medications No Known Medications Problem List Condition Effective Dates Status Health Status Inform ant DDD (degenerative disc disea se), lumbar (L5-S1)(Confirmed) 05/16/21 Active Perianal cyst(Confirmed) Active Exertional shortness of breath(Confirmed) Active Internal hemorrhoids(Confirmed) Active Cecal polyp, 1 cm(Confirmed) Active Umbilical hernia without obs truction and without gangrene (small, fat containing on CT enterography)(Confirmed) 05/16/21 Active Diagnosis Diagnosis Type Effective Dates Health Status Clini kiran Service Informant Abscess Discharge Diagnosis 02/04/22 Vital Signs Most recent to oldest [Reference Range]: 1 Height 183 cm (02/04/22 8:41 AM) Weight 96.3 kg (02/04/22 8:41 AM) Pulse Rate [55-90 bpm] 72 bpm (02/04/22 8:41 AM) Body Mass Index [18.5-24.99] 28.76 *H* (02/04/22 8:41 AM) Blood Pressure [90-138/55-84 mm Hg] 120/ 64mm Hg (02/04/22 8:41 AM) Temperature [96.8-100.4 DegF] 97.4 DegF (02/04/22 8:41 AM) Blood pressure sites Arm, right (02/04/22 8:41 AM) Temperature Route Temporal (02/04/22 8:41 AM) Social History Social History Type Response Smoking Status Never (less than 100 in lifetime) entered on: 09/14/21 Sex Care Team Personnel Name: Pramod STEIN, Luigi Santoro Address: [address] [place] [address] [place], [place] [address]
--- OUTSIDE RECORDS SUMMARY | 2022-09-21 02:31 | XMS_ITS | Continuity of Care Document ---
Author Name Unknown Organization [facility] Address [address] [place] [address] [address] [place] [address]- Care Team Providers Care Cinetechnician Name Role Phone Luigi Benavidez MD Primary Care Physician [phone] Encounter [facility] [place] Date(s): 02/04/22 - 03/06/22 [facility] [address] [place] [address]- [place] Attending Physician: Admtr, Ar8 Admitting Physician: Admtr, Ar8 Referring Physician: Admtr, Ar8 Allergies, Adverse Reactions, Alerts No Known Allergies Immunizations Given and Recorded Vaccine Date Status Refusal Reason SARS-CoV-2 (COVID-19) mRNA BNT-162b2 vac 04/06/21 Recorded SARS-CoV-2 (COVID-19) mRNA BNT-162b2 vac 10/02/20 Recorded SARS-CoV-2 (COVID-19) mRNA BNT-162b2 vac 09/11/20 Recorded influenza virus vaccine, inactivated 04/05/20 Lucien rded Meningococcal Conjugate Vaccine 08/05/18 Recorded Hepatitis A Adult Vaccine 08/05/18 Recorded Problem List Condition Confirmation Course Effective Dates Status Health St atus Informant DDD (degenerative disc disease), lumbar (L5-S1) Confirmed 05/16/21 Active Perianal cyst Confirmed Active Exertional shortness of breath Confirmed Active Internal hemorrhoids Confirmed Active Cecal polyp, 1 cm Confirmed Active Umbilical hernia without obstruction and without gangrene (small, fat containing on CT enterography) Confirmed 05/16/21 Active Social History Social History Type Response Smoking Status Never (less than 100 in lifetime) entered on: 09/14/21 Sex Patient Care team information Personnel Name: Luigi Benavidez MD Address: Address: [address] [place] [address] [place] [address]-
--- OUTSIDE RECORDS SUMMARY | 2022-09-21 02:31 | XMS_ITS | Continuity of Care Document ---
Author Name Unknown Organization [facility] Address [address] [place] [address] ve [address] [place] [address]- Care Team Providers Care Asset Card Clerk Name Role Phone Pramod STEIN, Luigi W Primary Care Physician [phone] Encounter [facility] [place] Date(s): 05/13/22 - 06/12/[address] [place] [address]- [place] Attending Physician: AdmMelchor [email or web address] Admitting Physician: AdmtrErick Referring Physician: Admtr, Ar8 Allergies, Adverse Reactions, [...] 04/09/22 9:41:00 EDT, Route to Pharmacy Electronically, [facility]/pharmacy #[id number], Partial fill upon patient request if the prescription is for a schedule II opioi... Start Date: 04/09/22 Status: Ordered docusate sodium 100 mg oral capsule 100 mg, 1, capsule, By Mouth, 2 times a day, # 60 capsule, Refills 0, Tot. Refills 0, Maintenance, 04/09/22 14:07:00 EDT, Route to Pharmacy Electronically, [facility]/pharmacy #[id number], Partial fill upon patient request if the prescription is for a schedule II... Start Date: 04/09/22 Status: Ordered fluticasone 50 mcg/inh nasal spray See Instructions, SPRAY 2 SPRAYS INTO EACH NOSTRIL EVERY MORNING, # 16 mL, 0 Refills, Maintenance, 04/12/22 8:27:00 EDT, [id number], 30, SPRAY 2 SPRAYS INTO EACH NOSTRIL EVERY MORNING, 183, cm, 03/22/22 14:35:00 EDT, Height, 96.4, kg, 04/09/22 8:... Start Date: 04/12/22 Status: Ordered ipratropium nasal 21 mcg/inh spray 1 sprays, Nares, Both, 3 times a day, PRN nasal and sinus congestion, for 14 days, # 1 each, 5 Refills, Acute 06/14/22 14:57:00 EST, 03/22/22 14:57:00 EDT, [facility]/pharmacy #[id number], Partial fill upon patient request if the prescription is for a schedule II... Start Date: 03/22/22 Stop Date: 06/14/22 Status: Ordered levocetirizine 5 mg oral tablet 1 tablet = 5 mg, By Mouth, Daily in PM, PRN head congestion, # 14 tablet, 0 Refills, Maintenance, 03/22/22 14:58:00 EDT, Tablet, [facility]/pharmacy #[id number], Partial fill upon patient request if the prescription is for a schedule II opioid drug., 1 tablet By M... Start Date: 03/22/22 Stop Date: 04/05/22 Status: Ordered oxyCODONE 5 mg oral capsule 1 capsule = 5 mg, By Mouth, Every 6 hours, PRN as needed for pain, # 28 capsule, 0 Refills, Maintenance, 04/09/22 9:41:00 EDT, Capsule, [facility]/pharmacy #[id number], Partial fill upon patient request if the prescription is for a schedule II opioid drug., 183, c... Start Date: 04/09/22 Status: Ordered Problem List Condition Confirmation Course Effective Dates [...] on: 09/14/21 Sex Patient Care team information Care Team Personnel Name: Pramod STEIN, Luigi Santoro Position: S Primary Care Physician Member Role: PCP Address: Address: [address] [place] [address] [place] [address]- [place] Care Team Related Persons Name: DECLINED, DECLINED
--- OUTSIDE RECORDS SUMMARY | 2022-09-21 02:31 | XMS_ITS | Continuity of Care Document ---
Author Name Unknown Organization [facility] Address [address] [place] [address] [address] [place] [address]- Care Team Providers Care Electron Tube Assembler Name Role Phone Luigi Benavidez MD Primary Care Physician [place] [facility] [place]13[place] - 05/20/[address] [place] [address]- [place] Encounter Diagnosis Anal fistula(Discharge Diagnosis) - 05/13/22 Attending Physician: Ade Pack NP Referring Physician: [...] 9:41:00 EDT, Route to Pharmacy Electronically, [facility]/pharmacy #[id number], Partial fill upon patient request if the prescription is for a schedule II opioi... Start Date: 04/09/22 Status: Ordered docusate sodium 100 mg oral capsule 100 mg, 1, capsule, By Mouth, 2 times a day, # 60 capsule, Refills 0, Tot. Refills 0, Maintenance, 04/09/22 14:07:00 EDT, Route to Pharmacy Electronically, [facility]/pharmacy #[id number], Partial fill upon patient request if the prescription is for a schedule II... Start Date: 04/09/22 Status: Ordered fluticasone 50 mcg/inh nasal spray See Instructions, SPRAY 2 SPRAYS INTO EACH NOSTRIL EVERY MORNING, # 16 mL, 0 Refills, Maintenance, 04/12/22 8:27:00 EDT, [facility] STORE [id number], 30, SPRAY 2 SPRAYS INTO EACH NOSTRIL EVERY MORNING, 183, cm, 03/22/22 14:35:00 EDT, Height, 96.4, kg, 04/09/22 8:... Start Date: 04/12/22 Status: Ordered ipratropium nasal 21 mcg/inh spray 1 sprays, Nares, Both, 3 times a day, PRN nasal and sinus congestion, for 14 days, # 1 each, 5 Refills, Acute 06/14/22 14:57:00 EST, 03/22/22 14:57:00 EDT, [facility]/pharmacy #[id number], Partial fill upon patient request if the prescription is for a schedule II... Start Date: 03/22/22 Stop Date: 06/14/22 Status: Ordered levocetirizine 5 mg oral tablet 1 tablet = 5 mg, By Mouth, Daily in PM, PRN head congestion, # 14 tablet, 0 Refills, Maintenance, 03/22/22 14:58:00 EDT, Tablet, [facility]/pharmacy #[id number], Partial fill upon patient request if the prescription is for a schedule II opioid drug., 1 tablet By M... Start Date: 03/22/22 Stop Date: 04/05/22 Status: Ordered oxyCODONE 5 mg oral capsule 1 capsule = 5 mg, By Mouth, Every 6 hours, PRN as needed for pain, # 28 capsule, 0 Refills, Maintenance, 04/09/22 9:41:00 EDT, Capsule, [facility]/pharmacy #[id number], Partial fill upon patient request if [...] containing on CT enterography) Confirmed 05/16/21 Active Diagnosis Diagnosis Type Effective Dates Health Status Cl inical Service Informant Anal fistula Discharge Diagnosis 05/13/22 Vital Signs Most recent to oldest [Reference Range]: 1 Height 183 cm (05/13/22 10:30 AM) Pulse Rate [55-90 bpm] 56 bpm (05/13/22 10:30 AM) Blood Pressure [90-138/55-84 mm Hg] 108/ 95mm Hg (05/13/22 10:30 AM) Temperature [96.8-100.4 DegF] 97.6 DegF (05/13/22 10:30 AM) Blood pressure sites Arm, right (05/13/22 10:30 AM) Temperature Route Temporal (05/13/22 10:30 AM) Social History Social History Type Response Smoking Status Never (less than 100 in lifetime) entered on: 09/14/21 Sex Patient Care team information Care Team Personnel Name: Pramod STEIN, Luigi Santoro Position: [facility] Primary Care Physician Member Role: PCP Address: Address: [address] [place] [address] [place] [address]- Care Team Related Persons Name: DECLINED, DECLINED
--- OUTSIDE RECORDS SUMMARY | 2022-09-21 02:31 | XMS_ITS | Continuity of Care Document ---
Author Name Unknown Organization [facility] Address Unknown Care Team Providers Care Welder Fitter Name Role Phone Luigi Benavidez MD Primary Care Physician [phone] Encounter [facility] [place] Date(s): 10/22/21 - 10/29/21 [facility] Encounter Diagnosis Perianal cyst(Discharge Diagnosis) - 10/22/21 Attending Physician: Ade Pack NP Referring Physician: [...] Adult Vaccine 08/05/18 Recorded Problem List Condition Effective Dates Status Health Status Inform ant DDD (degenerative disc disea se), lumbar (L5-S1)(Confirmed) 05/16/21 Active Perianal cyst(Confirmed) Active Exertional shortness of breath(Confirmed) Active Umbilical hernia without obs truction and without gangrene (small, fat containing on CT enterography)(Confirmed) 05/16/21 Active Diagnosis Diagnosis Type Effective Dates Health Status Cl inical Service Informant Perianal cyst Discharge Diagnosis 10/22/21 Vital Signs Most recent to oldest [Reference Range]: 1 Height 183 cm (10/22/21 10:06 AM) Weight 94.2 kg (10/22/21 10:06 AM) Pulse Rate [55-90 bpm] 80 bpm (10/22/21 10:06 AM) Body Mass Index [18.5-24.99] 28.13 *H* (10/22/21 10:06 AM) Blood Pressure [90-138/55-84 mm Hg] 117/ 83mm Hg (10/22/21 10:06 AM) Temperature [96.8-100.4 DegF] 98.3 DegF (10/22/21 10:06 AM) Social History Social History Type Response Smoking Status Never (less than 100 in lifetime) entered on: 09/14/21 Sex
--- OUTSIDE RECORDS SUMMARY | 2022-09-21 02:31 | XMS_ITS | Continuity of Care Document ---
Author Name Unknown Organization [facility] Address Unknown Care Team Providers Care Development And Housing Director Name Role Phone Pramod STEIN, Luigi W Primary Care Physician [phone] Encounter [facility] [place] Date(s): 10/22/21 - 11/21/21 [facility] Attending Physician: Erick Hoffman Admitting Physician: Erick Hoffman Referring Physician: Erick Hoffman Allergies, Adverse Reactions, Alerts No Known Allergies [...] fat containing on CT enterography)(Confirmed) 05/16/21 Active Social History Social History Type Response Smoking Status Never (less than 100 in lifetime) entered on: 09/14/21 Sex
--- NOTE | 2022-09-21 03:31 | ED.EXTPRO ---
HPI - Extremity Problem General Chief complaint: Extremity Injury, Upper Stated complaint: Pain in R shoulder from neck to lower back Time Seen by Provider: 09/21/22 03:31 Source: patient Mode of arrival: ambulatory Limitations: no limitations History of Present Illness HPI Narrative: Patient was playing pickle ball yesterday and soccer and heat noticed pain in the right rhomboids and the neck area no direct trauma or injury no motor weakness no leg pain no chest pain or shortness of breath Related Data Home Medications Medication Instructions Recorded Confirmed dicyclomine 20 mg tablet 20 mg PO TID PRN cramps 01/30/21 ondansetron HCl 4 mg tablet 4 mg PO Q8H PRN 01/30/21 fluticasone propionate 50 spray intranasal 03/22/22 mcg/actuation nasal spray,suspension Previous Rx's Medication Instructions Recorded sodium,potassium,mag sulfates 17.5 See Rx Instructions PO .COMPLEX 12/10/21 gram-3.13 gram-1.6 gram oral soln #354 mL (Suprep Bowel Prep Kit) cyclobenzaprine 10 mg tablet 10 mg PO Q8H #20 tabs 09/21/22 ibuprofen 600 mg tablet 600 mg PO Q6H PRN fever or pain 09/21/22 #30 tabs Allergies Allergy/AdvReac Type Severity Reaction Status Date / Time No Known Allergies Allergy Verified 01/08/22 07:14 [No Known Allergies*] Review of Systems Review of Systems: Yes all other systems are reviewed and are negative [facility] Past Medical History Medical History Colitis History of COVID-19 Family History Family History Family/Other Diabetes Heart attack Social History Social History Patient Tobacco Use Status: Never used Tobacco Advance Directives: No Advance Directives Information Provided: Yes Physical Exam Vital Signs: Vital Signs: Last Vital Signs Temp 98.0 F 09/21/22 01:39 Pulse 66 09/21/22 01:39 Resp 16 09/21/22 01:39 BP 101/69 09/21/22 01:39 Pulse Ox 97 09/21/22 01:39 O2 Del Method Room Air 09/21/22 01:39 BMI result Body Mass Index 28.5 Const: General: cooperative, healthy appearing and in distress mild Nutritional Appearance: average body habitus Orientation/consciousness: patient oriented x3 HEENT: Head: Yes normal to inspection and Yes normocephalic Neck: Carotids: normal carotid upstroke Lymphatic: no lymphadenopathy noted Neck images: 1. Mild tenderness and upper cervical spine and paraspinal area with muscle spasm Resp: Effort & Inspection: normal respiratory effort Auscultation: clear to auscultation bilaterally Cardio: Palpation: normal PMI Rate: regular rate Rhythm: regular rhythm Heart sounds: S1 normal heart sound present and S2 normal heart sound present GI: Inspection: Yes normal to inspection Palpation (GI): Soft to palpation Auscultation: normal bowel sounds : General: Yes no CVA tenderness Back/Spine/Pelvis: Back: no CVA tenderness Back/spine/pelvis image: 1. Tenderness in right rhomboids Neuro: General: patient oriented x3, gait normal and no focal motor deficits Medications Administered Discontinued Medications Generic Name Dose Route Start Last Admin Trade Name Freq PRN Reason Stop Dose Admin Cyclobenzaprine HCl 10 mg 09/21/22 04:17 09/21/22 04:31 Cyclobenzaprine Hcl 10 Mg Tablet PO 09/21/22 04:18 10 mg ONCE ONE Administration Sodium Chloride 1,000 mls @ 999 mls/hr 09/21/22 03:40 09/21/22 04:59 Ns IV 09/21/22 04:40 Infused .Q1H1M ONE Infusion Ketorolac Tromethamine 30 mg 09/21/22 03:40 09/21/22 04:26 Ketorolac Tromethamine 30 Mg/Ml Vial IVPUSH 09/21/22 03:41 30 mg ONCE ONE Administration Medical Decision Making Medical Decision Making MDM Narrative: Patient with muscular pain CT scan of the C-spine negative sore right shoulder x-ray also negative slightly elevated CPK from working in the heat may be contributing to the pain will discharge patient home on ibuprofen and Flexeril Lab Data [facility] Lab Attestation statement: I reviewed the patient's lab results. 09/21/22 04:23 09/21/22 04:23 Labs: Lab Results 09/21/22 09/21/22 Range/Units 04: 04:23 WBC 5.8 (4.8-10.8) X10*3/uL RBC 5.18 (4.60-5.80) X10*6/uL Hgb 14.6 (14.0-18.0) g/dl Hct 43.7 (42.0-52.0) % MCV 84.4 (80.0-98.0) fL MCH 28.2 (27.0-33.0) pg MCHC 33.4 (31.0-36.0) g/dl RDW 12.8 (11.0-16.0) % Plt Count 191 (160-400) X10*3/uL MPV 10.1 (9.4-12.4) fL Immature Gran % (Auto) 0.5 H (0.0-0.4) % Neut % (Auto) 39.3 L (45-73) % Lymph % (Auto) 48.5 H (20-40) % [place] % (Auto) 7.4 (2-11) % Eos % (Auto) 3.6 (0-4) % Baso % (Auto) 0.7 (0-2) % Lymph # (Auto) 2.8 (1.2-4.9) X10*3/uL [place] # (Auto) 0.4 (0.1-1.2) X10*3/uL Eos # (Auto) 0.2 (0.0-0.4) X10*3/uL Baso # (Auto) 0.0 (0.0-0.2) X10*3/uL Abs Immat Gran (auto) 0.03 (0.00-0.03) X10*3/uL Absolute Neuts (auto) 2.3 (2.0-8.3) x10*3/uL Absolute Nucleated RBC 0.000 (0.0-0.012) X10*3/uL Nucleated RBC % (auto) 0.0 (0.0-0.2) /100WBC Sodium 141 (135-145) mmol/L Potassium 4.4 (3.3-5.1) mmol/L Chloride 107 (96-108) mmol/L Carbon Dioxide 26 (22-29) mmol/L Anion Gap 12 (12-20) BUN 13 (9-16) mg/dL Creatinine 1.04 (0.5-1.4) mg/dL Estim Creat Clear Calc 122.1 Estimated GFR > 60 Random Glucose 95 (60-115) mg/dL Calcium 9.3 (8.4-10.2) mg/dL Magnesium 2.2 (1.6-2.6) mg/dL Total Creatine Kinase 416 H (38-174) U/L Discharge Plan Discharge Clinical Impression: Strain of right rhomboid muscle, Neck muscle strain Patient Disposition: Home, Self-Care Instructions: Cervical Strain (ED), Thoracic Back Strain (ED) Additional Instructions: Drink plenty of fluids Avoid working out in hot weather Pain medication and muscle relaxants advised Prescriptions: New cyclobenzaprine 10 mg tablet 10 mg PO Q8H Qty: 20 0RF ibuprofen 600 mg tablet 600 mg PO Q6H PRN (Reason: fever or pain) Qty: 30 0RF No Action Suprep Bowel Prep Kit 17.5-3.13-1.6 gram recon soln See Rx Instructions PO .COMPLEX Qty: 354 0RF Rx Instructions: DILUTE; drink 1/2 at 6-8 pm and half at 11 PM- 1AM dicyclomine 20 mg tablet 20 mg PO TID PRN (Reason: cramps) ondansetron HCl 4 mg tablet 4 mg PO Q8H PRN fluticasone propionate 50 mcg/actuation spray,suspension intranasal Interventions: ED Discharge Assessment Last Done: 09/21/22 06:40 Discharge Date/Time: 09/21/22 06:40
[2022-09-21] MEDS: 0.9 % Sodium Chloride 1,000 ML 999 ML IV (04:25)
[2022-09-21] MEDS: Ketorolac Tromethamine 30 MG/ML VIAL IVPUSH (04:26)
[2022-09-21 04:27] LABS: MANUAL DIFF FLAG NO
[2022-09-21 04:28] LABS: Basophils Percent Auto 0.7 % (0-2); Eosinophils Absolute Auto 0.2 X10*3/uL (0.0-0.4); Eosinophils Percent Auto 3.6 % (0-4); Hematocrit 43.7 % (42.0-52.0); Hemoglobin 14.6 g/dl (14.0-18.0); Imm Gran Abs Auto 0.03 X10*3/uL (0.00-0.03); Imm Gran Pct Auto 0.5 % (0.0-0.4); Lymphocytes Absolute Auto 2.8 X10*3/uL (1.2-4.9); Lymphocytes Percent Auto 48.5 % (20-40); Mean Corpuscular HGB Conc 33.4 g/dl (31.0-36.0); Mean Corpuscular Hemoglobin 28.2 pg (27.0-33.0); Mean Corpuscular Volume 84.4 fL (80.0-98.0); Mean Platelet Volume 10.1 fL (9.4-12.4); Monocytes Absolute Auto 0.4 X10*3/uL (0.1-1.2); Monocytes Percent Auto 7.4 % (2-11); Neutrophils Absolute Auto 2.3 x10*3/uL (2.0-8.3); Neutrophils Percent Auto 39.3 % (45-73); Platelet Count 191 X10*3/uL (160-400); Red Blood Count 5.18 X10*6/uL (4.60-5.80); Red Cell Distribution Width 12.8 % (11.0-16.0); White Blood Count 5.8 X10*3/uL (4.8-10.8)
[2022-09-21] MEDS: Cyclobenzaprine HCl 10 MG TABLET PO (04:31)
[2022-09-21 04:51] LABS: Anion Gap 12 (12-20); Blood Urea Nitrogen 13 mg/dL (9-16); Calcium 9.3 mg/dL (8.4-10.2); Carbon Dioxide 26 mmol/L (22-29); Chloride 107 mmol/L (96-108); Creatinine Clr Calc Pharmacy 122.1; Estimated Glomerular Filt Rate > 60; Glucose Random 95 mg/dL (60-115); Magnesium 2.2 mg/dL (1.6-2.6); Potassium 4.4 mmol/L (3.3-5.1); Sodium 141 mmol/L (135-145)
== END 2022-09-21 06:40 | disposition home or self-care (01) ==
PROVIDERS: Emergency Provider Internal Medicine; PCP Internal Medicine
DX: S29.011A Strain of muscle and tendon of front wall of thorax, initial encounter (principal); S16.1XXA Strain of muscle, fascia and tendon at neck level, initial encounter; X50.9XXA Other and unspecified overexertion or strenuous movements or postures, initial encounter; Y93.73 Activity, racquet and hand sports; Y92.328 Other athletic field as the place of occurrence of the external cause; Y99.9 Unspecified external cause status
CPT/HCPCS: 36415; 72125; 73030; 80048; 82550; 83735; 85025; 96361; 96374; 99284; J1885

== ENCOUNTER 2022-12-12 22:01 | Emergency (ER) | payer MEDICAID, SELFPAY ==
[2022-12-12 22:29] VITALS: BP 116/66; PULSE 83; RESP 18; TEMP 36.7; O2SAT 96; BMI 29.2
--- NOTE | 2022-12-12 22:44 | ED.LOWEXIN ---
HPI - Extremity Injury (Lower) General Chief Complaint: Extremity Injury, Lower Stated Complaint: Twisted left knee Time Seen by Provider: 12/12/22 22:25 Source: patient Mode of arrival: ambulatory Limitations: no limitations History of Present Illness HPI Narrative: A pill patient was playing pickle ball moved quickly with foot on the ground complaining of pain and swelling of the left knee and sent increased pain on standing no other injury Related Data Home Medications Medication Instructions Recorded Confirmed dicyclomine 20 mg tablet 20 mg PO TID PRN cramps 01/30/21 ondansetron HCl 4 mg tablet 4 mg PO Q8H PRN 01/30/21 fluticasone propionate 50 spray intranasal 03/22/22 mcg/actuation nasal spray,suspension Previous Rx's Medication Instructions Recorded sodium,potassium,mag sulfates 17.5 See Rx Instructions PO .COMPLEX 12/10/21 gram-3.13 gram-1.6 gram oral soln #354 mL (Suprep Bowel Prep Kit) cyclobenzaprine 10 mg tablet 10 mg PO Q8H #20 tabs 09/21/22 ibuprofen 600 mg tablet 600 mg PO Q6H PRN fever or pain 09/21/22 #30 tabs ibuprofen 600 mg tablet 600 mg PO Q6H PRN fever or pain 12/12/22 #30 tabs tramadol 50 mg tablet 50 mg PO Q6H PRN pain #20 tabs 12/12/22 Allergies Allergy/AdvReac Type Severity Reaction Status Date / Time No Known Allergies Allergy Verified 12/12/22 22:29 [No Known Allergies*] Review of Systems Review of Systems: Yes all other systems are reviewed and are negative [facility] Past Medical History Medical History Colitis History of COVID-19 Family History Family History Family/Other Diabetes Heart attack Social History Social History Patient Tobacco Use Status: Never used Tobacco Physical Exam Vital Signs: Vital Signs: Last Vital Signs Temp 98.1 F 12/12/22 22:29 Pulse 83 12/12/22 22:29 Resp 18 12/12/22 22:29 BP 116/66 12/12/22 22:29 Pulse Ox 96 12/12/22 22:29 O2 Del Method Room Air 12/12/22 22:29 BMI result Body Mass Index 29.2 Extrem: Knee images: 1. Tenderness at medial collateral ligament Lachelle and anterior drawer sign negative moderate amount of knee effusion no bony deformity Medical Decision Making Medical Decision Making [facility] Narrative: Patient with likely medial ligament strain versus meniscal injury knee immobilizer was applied and crutches were given supportive treatment advised to follow with Orthopedics if not Radiology Impression Discussion of test interpretation with radiology: I have reviewed the radiologist's reading. Radiologist Impression: [address] [address] XRay Report Signed Patient: Mitch Saunders MR#: [id number] : 1990 Acct:[id number] Age/Sex: 32 / M ADM Date: 12/12/22 Loc: .ED Attending Dr: Ordering Physician: Reza Cole MD Date of Service: 12/12/22 Procedure(s): XR knee LT 4V Accession Number(s): [id number] cc: Reza Cole MD~ EXAMINATION: XR KNEE, LEFT CLINICAL INFORMATION: Fall. Pain.? COMPARISON: None available.? TECHNIQUE: Four views of the left knee. FINDINGS: No fracture or subluxation. Compartmental joint spaces are maintained. No joint effusion. The soft tissues are unremarkable.? XR/XR knee LT 4V IMPRESSION: Normal left knee. ? Discharge Plan Discharge Clinical Impression: Strain of left knee Patient Disposition: Home, Self-Care Instructions: Knee Sprain (ED) Additional Instructions: Likely you have medial collateral ligament strain Wear knee immobilizer use crutches Partial weight-bearing Rest and pain medication Follow with Orthopedics in 2 weeks if not better Prescriptions: New tramadol 50 mg tablet 50 mg PO Q6H PRN (Reason: pain) Qty: 20 0RF ibuprofen 600 mg tablet 600 mg PO Q6H PRN (Reason: fever or pain) Qty: 30 0RF No Action Suprep Bowel Prep Kit 17.5-3.13-1.6 gram recon soln See Rx Instructions PO .COMPLEX Qty: 354 0RF Rx Instructions: DILUTE; drink 1/2 at 6-8 pm and half at 11 PM- 1AM cyclobenzaprine 10 mg tablet 10 mg PO Q8H Qty: 20 0RF ibuprofen 600 mg tablet 600 mg PO Q6H PRN (Reason: fever or pain) Qty: 30 0RF dicyclomine 20 mg tablet 20 mg PO TID PRN (Reason: cramps) ondansetron HCl 4 mg tablet 4 mg PO Q8H PRN fluticasone propionate 50 mcg/actuation spray,suspension intranasal Referrals: Shahid Ramirez MD [Physician] - 2 weeks
== END 2022-12-12 22:59 | disposition home or self-care (01) ==
PROVIDERS: Emergency Provider Internal Medicine; PCP Internal Medicine
DX: S86.112A Strain of other muscle(s) and tendon(s) of posterior muscle group at lower leg level, left leg, initial encounter (principal); X50.1XXA Overexertion from prolonged static or awkward postures, initial encounter; Y93.73 Activity, racquet and hand sports; Y92.312 Tennis court as the place of occurrence of the external cause; Y99.9 Unspecified external cause status
CPT/HCPCS: 73564; 99283